=== PATIENT | male | born 1945 | race Caucasian/White ===

== ENCOUNTER 2020-12-12 13:05 | Inpatient (IN) | payer OTHER ==
[~2020-12-12] VITALS: Ht 167.6 cm; Wt 73.0 kg
[2020-12-12] MEDS ORDERED: MEROPENEM1 GM IV (23:56)
[2020-12-12] MEDS ORDERED: VANCO-0.9%1.25 GM/25 IV (23:57)
[2020-12-13] MEDS ORDERED: MICAFUNGIN100 MG IV
[2020-12-13] MEDS ORDERED: NESINA25 MG PO (00:01)
[2020-12-13] MEDS ORDERED: TRAZODONE HCL50 MG PO (00:02)
[2020-12-13] MEDS ORDERED: ATORVASTATIN CA10 MG PO (00:03)
[2020-12-13] MEDS ORDERED: NEURONTIN300 MG PO (00:03)
[2020-12-13] MEDS ORDERED: LEVOTHYROXINE25 MC1 PO (00:04)
[2020-12-13] MEDS ORDERED: PROTONIX IV40 MG IV (00:05)
[2020-12-13] MEDS ORDERED: LANTUS100 UNIT/1 IV (00:06)
[2020-12-13] MEDS ORDERED: LOVENOX80 MG/0.8 SC (00:07)
[2020-12-13 05:26] LABS: HEMOGLOBIN 8.1 gm/dl (14.0-17.5); RED BLOOD COUNT 2.81 M/UL (4.20-5.50); WHITE BLOOD COUNT 10.7 K/UL (4.5-11.0)
[2020-12-13 06:57] LABS: BUN/CREATININE RATIO 48 (0-10)
[2020-12-14 02:46] LABS: HEMOGLOBIN 8.3 gm/dl (14.0-17.5); RED BLOOD COUNT 2.87 M/UL (4.20-5.50); WHITE BLOOD COUNT 10.2 K/UL (4.5-11.0)
[2020-12-14 03:11] LABS: BUN/CREATININE RATIO 42 (0-10)
[2020-12-15 05:15] LABS: HEMOGLOBIN 8.1 gm/dl (14.0-17.5); RED BLOOD COUNT 2.81 M/UL (4.20-5.50)
[2020-12-15 05:21] LABS: WHITE BLOOD COUNT 7.3 K/UL (4.5-11.0)
[2020-12-15 05:40] LABS: BUN/CREATININE RATIO 38 (0-10)
[2020-12-16 04:34] LABS: RED BLOOD COUNT 2.77 M/UL (4.20-5.50)
[2020-12-16 05:08] LABS: BUN/CREATININE RATIO 34 (0-10)
--- NOTE | 2020-12-16 18:58 | NUR ---
NEW OPEN AREA NOTED TO LEFT ANTERIOR NECK UNDER TRACH COLLAR. MD NOTIFIED, STATED TO KEEP AREA DRY AND 4X4'S AROUND STOMA. AREA DOCUMENTED. PATIENT DENIES ANY PAIN AT AREA. NO DRAINAGE OR FOUL ODOR NOTED.
[2020-12-17 03:01] LABS: HEMOGLOBIN 7.9 gm/dl (14.0-17.5); RED BLOOD COUNT 2.7 M/UL (4.20-5.50); WHITE BLOOD COUNT 10.6 K/UL (4.5-11.0)
[2020-12-17 03:59] LABS: BUN/CREATININE RATIO 34 (0-10)
[2020-12-18 03:34] LABS: BUN/CREATININE RATIO 32 (0-10)
--- NOTE | 2020-12-19 02:15 | NUR ---
THIS RN CALLED TO BEDSIDE AT THIS TIME, PATIENT HAVING INCREASED WORK OF BREATHING AND O2 SATURATION DECREASING INTO THE 60'S. PATIENT NOTED TO BE PALE, TACHYPNIC, USING ABDOMINAL MUSCLES AND LABORED BREATING. ATTENDING DR CRANDALL NOTIFIED PER NURSING STAFF OF PATIENT CHANGE IN STATUS AND NURSING STAFF INSTRUCTED TO OBTAIN A CHEST XRAY AND TO SUCTION PATIENT TRACH UNITL IMPROVED. RT AT BEDSIDE UPON MY ARRIVAL AND HAS BEEN SUCTIONING PATIENT TRACH. COPIOUS AMOUNTS OF THICK SPUTUM NOTED TO BE SUCITONED BY RT AT THIS TIME. PATIENT O2 SAT INCREASES INTO THE UPPER 80'S LOWER 90'S AND THEN DROPS AGAIN INTO THE HIGH 70'S. MD CALLED TO BEDSIDE. UPON MD ARRIVAL PATIENT VOICES TO TRANSFER TO UNIT, AND TO PREPARE TO INTUBATE. EXTRUSION SUPERVISOR AWARE AND ARRIVES AT BEDSIDE. PATIENT TRANSPORTED TO ICU PER MYSELF, RT, RA ROMERO, GABO ROMERO AND SHIKHA RN WHO IS THE PRIMARY NURSE.
--- NOTE | 2020-12-19 03:02 | NUR ---
APPROX. 0210: PATIENT METALLURGY TEACHER ENTERED ROOM TO GET VITALS. PATIENT'S 02 SATURATION WAS 50 PERCENT ON 3 L NC. I CALLED RESPIRATORY, I PLACED PATIENT ON NON REBREATHER MASK AT 15L. PATIENT 02 SATURATION CAME UP TO 80%. RESPIRATORY CAME TO PATIENT'S BEDSIDE AND SUCTIONED PATIENT'S TRACH. PATIENT WAS USING HIS ACCESSORY MUSCLES TO BREATH. O2 SATURATION CAME UP TO 88%. APPROX. 0220: I NOTIFIED DR. CRANDALL OF PATIENT'S CONDITION CHANGE. DR. CRANDALL ORDERED STAT CHEST XRAY AND STATED TO KEEP SUCTIONING PATIENT. I OBTAINED ORDER FOR CONTINOUS TELEMETRY AND PULSE OX. APRROX. 0222: NOTIFIED SAW GRINDER OF PATIENT SITUATION AND THE NEED FOR HIGHER LEVEL OF CARE BED. APPROX. 0222: RESPIRATORY CONTINUED TO DEEP SUCTION PATIENT. PATIENT O2 SATURATION DROPPED TO 74%. CALLED DR. CRANDALL AND TOLD HIM TO COME SEE PATIENT AND THAT HE NEEDED HIGHER LEVEL OF CARE. AFTER SUCTIONING O2 SATURATION WOULD COME UP TO 92% WHILE PATIENT WAS ON NON REBREATHER MASK. WHEN RESPIRATORY WOULD STOP SUCTIONING PATIENT HE WOULD DROP TO 70%. APPROX. 0225: DR. CRANDALL CAME TO SEE PATIENT. STATED FOR PATIENT TO BE MOVED TO ICU. APPROX. 0235: ONCE PATIENT WAS STABLE, I ALONG WITH RESOURCE RN, RESPIRATORY AND PATIENT METALLURGY TEACHER TRANSFERRED PATIENT TO ICU ROOM 2117.
--- NOTE | 2020-12-19 03:51 | NUR ---
PATIENT ARRIVED TO ICU 2117 AT 0240 ATTACHED TO AED MONITOR. RN, RT, MD, AND SILK SCREEN LAYOUT DRAFTER AT BEDSIDE. PATIENT ATTACHED TO MONITOR. PATIENT TACHYCARDIC AND TACHYPENIC. TRACH CANNULA EXCHANGE MADE AT BEDSIDE BY . PATIENT NOW RESTING QUIETLY IN THE BED AT THIS TIME. WILL CONTINUE TO MONITOR.
[2020-12-19 06:36] LABS: HEMOGLOBIN 8.2 gm/dl (14.0-17.5); RED BLOOD COUNT 2.79 M/UL (4.20-5.50); WHITE BLOOD COUNT 12.9 K/UL (4.5-11.0)
[2020-12-19 07:57] LABS: BUN/CREATININE RATIO 46 (0-10)
--- NOTE | 2020-12-19 09:38 | NUR ---
PT BP RUNNING CONSISTENTLY LOW. PULMONOLOGY AWARE. SCHEDULED DOSE OF ALBUMIN ADMINISTERED BUT BP CONTINUED TO RUN LOW. HOSPITALIST NOTIFIED AND ORDER OBTAINED FOR LEVOPHED DRIP. STARTED PER PROTOCOL. SEE FLOWSHEET/EMAR.
[2020-12-20 07:29] LABS: HEMOGLOBIN 7.6 gm/dl (14.0-17.5); RED BLOOD COUNT 2.59 M/UL (4.20-5.50)
[2020-12-20 07:30] LABS: WHITE BLOOD COUNT 7.8 K/UL (4.5-11.0)
[2020-12-20 07:42] LABS: BUN/CREATININE RATIO 28 (0-10)
[2020-12-21 05:32] LABS: HEMOGLOBIN 7.2 gm/dl (14.0-17.5); RED BLOOD COUNT 2.42 M/UL (4.20-5.50)
[2020-12-21 05:33] LABS: WHITE BLOOD COUNT 4.1 K/UL (4.5-11.0)
[2020-12-21 05:58] LABS: BUN/CREATININE RATIO 31 (0-10)
[2020-12-22 05:18] LABS: HEMOGLOBIN 7.9 gm/dl (14.0-17.5); RED BLOOD COUNT 2.7 M/UL (4.20-5.50); WHITE BLOOD COUNT 8.5 K/UL (4.5-11.0)
[2020-12-22 05:47] LABS: BUN/CREATININE RATIO 34 (0-10)
[2020-12-22 08:58] LABS: MONONUCLEAR CELLS 79.6 (75-100); POLYMORPHONUCLEAR % 20.4 (0-25); RBC (AUTOMATED) 300 (0-100000); WBC (AUTOMATED) 618 (0-500)
[2020-12-22 09:30] LABS: LDH, BODY FLUID 80 U/L; TOTAL PROTEIN, BODY FLUID 2.6 gm/dL
[2020-12-24 03:32] LABS: HEMOGLOBIN 7.3 gm/dl (14.0-17.5); RED BLOOD COUNT 2.6 M/UL (4.20-5.50)
[2020-12-24 03:34] LABS: WHITE BLOOD COUNT 6.1 K/UL (4.5-11.0)
[2020-12-24 03:51] LABS: BUN/CREATININE RATIO 76 (0-10)
[2020-12-25 04:04] LABS: RED BLOOD COUNT 2.79 M/UL (4.20-5.50); WHITE BLOOD COUNT 5.4 K/UL (4.5-11.0)
[2020-12-25 04:25] LABS: BUN/CREATININE RATIO 80 (0-10)
--- NOTE | 2020-12-26 11:04 | NUR ---
THE PATIENT IS ALERT AND ORIENTED X4, HE IS AWARE THAT HE IS NOT TO HAVE ANYTHING BY MOUTH EXCEPT FOR ICE CHIPS. HE CONTINUALLY HAS VISITORS BRING HIM DRINKS AND WILL WAIT FOR THE ICE TO MELT AND DRINK IT, I HAVE REINFORCED MULTIPLE TIMES THE RISKS OF ASPIRATION BUT THE PATIENT CONTINUES TO BE NON COMPLIANT. ANY MELTED ICE IS BEING TAKEN AWAY SOON POSSIBLE.
[2020-12-26 15:06] LABS: HEMOGLOBIN 9.6 gm/dl (14.0-17.5)
[2020-12-26 15:10] LABS: RED BLOOD COUNT 3.3 M/UL (4.20-5.50); WHITE BLOOD COUNT 16.4 K/UL (4.5-11.0)
[2020-12-27 03:07] LABS: HEMOGLOBIN 9.2 gm/dl (14.0-17.5); RED BLOOD COUNT 3.19 M/UL (4.20-5.50)
[2020-12-27 03:21] LABS: WHITE BLOOD COUNT 12.2 K/UL (4.5-11.0)
[2020-12-27 03:27] LABS: BUN/CREATININE RATIO 74 (0-10)
[2020-12-28 03:25] LABS: HEMOGLOBIN 8.3 gm/dl (14.0-17.5); RED BLOOD COUNT 2.9 M/UL (4.20-5.50); WHITE BLOOD COUNT 6.4 K/UL (4.5-11.0)
[2020-12-28 03:52] LABS: BUN/CREATININE RATIO 71 (0-10)
[2020-12-29 03:21] LABS: BUN/CREATININE RATIO 74 (0-10)
[2020-12-29] MEDS ORDERED: IPRAT-ALBUT 0.5-3 ML NEB (10:04)
[2020-12-29] MEDS ORDERED: LANTUS100 UNIT/1 SC (10:04)
[2020-12-29] MEDS ORDERED: FLOMAX 0.4 MG0.4 MG PO (10:04)
[2020-12-29] MEDS ORDERED: LEVOTHYROXINE50 MCG PO (10:04)
[2020-12-29] MEDS ORDERED: FERROUS SU300 MG/5 M PEG (10:04)
[2020-12-29] MEDS ORDERED: PROTONIX IV40 MG PO (10:14)
== END 2020-12-29 15:29 | disposition home health service (06) | DRG 205 ==
LOC: PROG CARE 19:10 → M/S 12-15 07:10 → PROG CARE 12-15 07:10 → CCU 12-15 07:10 → M/S 12-15 10:59 → CCU 12-19 02:33 → PROG CARE 12-26 15:08 → MED SURG 4 12-29 04:32
PROVIDERS: Internal Medicine; Internal Medicine Pulmonary Disease; ADMIT Internal Medicine Infectious Disease
PROC: 0B938ZZ Drainage of Right Main Bronchus, Via Natural or Artificial Opening Endoscopic (ICD-10-PCS; 2020-12-20)
PROC: 0B978ZZ Drainage of Left Main Bronchus, Via Natural or Artificial Opening Endoscopic (ICD-10-PCS; 2020-12-20)
PROC: 0W9B3ZX Drainage of Left Pleural Cavity, Percutaneous Approach, Diagnostic (ICD-10-PCS; principal; 2020-12-22)
DX: J95.09 Other tracheostomy complication (principal); J96.21 Acute and chronic respiratory failure with hypoxia; J69.0 Pneumonitis due to inhalation of food and vomit; R65.21 Severe sepsis with septic shock; J90 Pleural effusion, not elsewhere classified; E87.1 Hypo-osmolality and hyponatremia; J04.10 Acute tracheitis without obstruction; M19.90 Unspecified osteoarthritis, unspecified site; M17.12 Unilateral primary osteoarthritis, left knee; I50.9 Heart failure, unspecified; J44.9 Chronic obstructive pulmonary disease, unspecified; B88.8 Other specified infestations; E88.09 Other disorders of plasma-protein metabolism, not elsewhere classified; E11.65 Type 2 diabetes mellitus with hyperglycemia; E03.9 Hypothyroidism, unspecified; E11.649 Type 2 diabetes mellitus with hypoglycemia without coma; I11.0 Hypertensive heart disease with heart failure; D53.9 Nutritional anemia, unspecified; J40 Bronchitis, not specified as acute or chronic; E78.5 Hyperlipidemia, unspecified; Y83.8 Other surgical procedures as the cause of abnormal reaction of the patient, or of later complication, without mention of misadventure at the time of the procedure; E87.6 Hypokalemia; D69.6 Thrombocytopenia, unspecified; I25.10 Atherosclerotic heart disease of native coronary artery without angina pectoris; N40.0 Benign prostatic hyperplasia without lower urinary tract symptoms; Z87.01 Personal history of pneumonia (recurrent); Z86.718 Personal history of other venous thrombosis and embolism; Z93.0 Tracheostomy status; Z79.4 Long term (current) use of insulin; Z93.1 Gastrostomy status
CPT/HCPCS: ECHO; 36415; 36600; 71045; 74230; 80048; 80053; 80202; 81001; 82607; 82728; 82746; 82803; 82962; 83540; 83550; 83615; 83735; 83880; 84100; 84132; 84157; 84443; 85025; 85027; 86140; 87040; 87070; 87077; 87086; 87186; 87205; 89051; 92526; 92610; 92611-GN; 93306; 93970; 94002; 94003; 94640; 94664; 94760; 96372; 96374; 96375; 96376; 97110-GP-CQ; 97162; 97164; 97166; 97168; 97530-GP-CQ; A6212; C1729; C9113; G0378; G0379; J1120; J1650; J1756; J1940; J2185; J2248; J2250; J2543; J3243; J3370; J3480; J7040; J7050; J7070; P9047; U0002